=== PATIENT | male | born 1935 | race Caucasian/White ===

== ENCOUNTER 2018-08-25 10:16 | Emergency (ER) | payer MEDICARE, OTHER ==
--- NOTE | 2018-08-25 10:41 | ED Physician Documentation ---
PD HPI DYSPNEA - Stated complaint Stated Complaint: RAPID HR - Chief complaint Chief Complaint: Cardiac - History obtained from History obtained from: Patient - History of Present Illness Timing - onset: How many hours ago (2-3), Today Timing - onset during: Sleep (awoke feeling some general weakness and chest palpitations at times. Took BP and heart rate and his BP was slightly low at about 110-120 systolic and heart rate was 145. Usual heart rate is 60s. He says he felt okay yesterday. He takes his BP/HR daily and it was normal yesterday, and he felt okay when went to bed.) Timing - duration: Hours Timing - details: Abrupt onset, Still present, Waxing and waning (not feeling the palpitations continually but his heart rate by pulse check has stayed at 145.) Inciting event(s): No: Immobilization/travel Improved by: No: Rest Associated symptoms: Palpitations. No: Fever, Cough, Wheezing, Chest pain / discomfort, Bilateral edema Similar symptoms before: Diagnosis (Nhad similar symptoms right after he had valve replacement surgery about 7 years ago. Had atrial fib and was in hospital for several days and did get cardioverted 3 times during that until the atrial fib finally stayed gone. 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 ), Other (LBBB) Respiratory: None - Present Medications Home Medications: Ambulatory Orders Medication Instructions Recorded Confirmed Metoprolol Tartrate [Lopressor] 25 mg PO DAILY #15 tablet 08/25/18 - Allergies Allergies/Adverse Reactions: Allergies Allergy/AdvReac Type Severity Reaction Status Date / Time procaine [From Novocain] Allergy Unknown Verified 08/25/18 10:26 PD ED PE NORMAL - Vitals Vital signs reviewed: Yes (heart rate on monitor is consistent 145.) - General General: Alert and oriented X 3, No acute distress, Well developed/nourished - HEENT HEENT: Pharynx benign - Neck Neck: Supple, no meningeal sign, No adenopathy - Cardiac Cardiac: No: RRR (tachycardia with slight left sternal border murmur. Does not radiate. No chest wall tenderness. ) - Respiratory Respiratory: No respiratory distress, Clear bilaterally - Abdomen Abdomen: Soft, Non tender - Derm Derm: Normal color, Warm and dry, No rash - Extremities Extremities: No tenderness to palpate, Normal ROM s pain, No edema, No calf ten derness / cord - Neuro Neuro: Alert and oriented X 3, No motor deficit, Normal speech Results - Vitals Vitals: Vital Signs - 24 hr 08/25/18 08/25/18 08/25/18 10:23 10:30 10:47 Temperature 36.7 C Heart Rate 145 H 145 H 144 H Respiratory 20 23 18 Rate Blood Pressure 140/101 H 152/106 H 144/102 H O2 Saturation 99 99 97 08/25/18 08/25/18 08/25/18 10:59 11:05 11:15 Temperature Heart Rate 142 H 107 H 97 Respiratory 14 16 18 Rate Blood Pressure 122/89 H 142/92 H 133/72 H O2 Saturation 96 97 95 08/25/18 08/25/18 08/25/18 11:30 11:35 11:40 Temperature Heart Rate 94 93 83 Respiratory 15 15 19 Rate Blood Pressure 130/68 131/70 H 127/78 O2 Saturation 95 96 97 08/25/18 08/25/18 08/25/18 11:45 12:11 12:30 Temperature Heart Rate 81 97 96 Respiratory 17 19 18 Rate Blood Pressure 129/76 125/79 158/122 H O2 Saturation 97 98 97 08/25/18 08/25/18 08/25/18 12:45 12:50 12:55 Temperature Heart Rate 140 H 72 66 Respiratory 18 16 19 Rate Blood Pressure 153/98 H 115/78 117/82 H O2 Saturation 97 97 97 08/25/18 08/25/18 08/25/18 12:59 13:15 13:32 Temperature Heart Rate 70 66 68 Respiratory 22 17 18 Rate Blood Pressure 115/61 105/70 117/67 O2 Saturation 98 97 97 08/25/18 14:00 Temperature Heart Rate 69 Respiratory 25 H Rate Blood Pressure 121/71 O2 Saturation 97 Oxygen O2 Source Room air - EKG (time done) 10:49 Rate: Rate (enter#) (144) Rhythm: Atrial flutter Intervals: LBBB Ischemia: Non specific changes following cardioversion Rate: Rate (enter#) (70) Rhythm: NSR [place]: Normal Intervals: Normal CT, LBBB Ischemia: Normal ST segments. No: ST elevation c/w ischemia, ST depression - Labs Labs: Laboratory Tests 08/25/18 08/25/18 08/25/18 10:28 10:35 10:35 WBC 16.7 H RBC 5.25 Hgb 15.0 Hct 45.8 MCV 87.2 MCH 28.6 MCHC 32.7 RDW 14.3 Plt Count 191 MPV 10.1 Neut # (Auto) 13.0 H Lymph # (Auto) 1.9 [place] # (Auto) 1.6 H Eos # (Auto) 0.0 Baso # (Auto) 0.2 H Absolute Nucleated RBC 0.01 Nucleated RBC % 0.1 Sodium 138 Potassium 4.1 Chloride 106 Carbon Dioxide 20 L Anion Gap 12.0 BUN 25 H Creatinine 1.5 H Estimated GFR (MDRD) 45 L Glucose 120 H Calcium 8.7 Magnesium 2.3 Total Bilirubin 1.3 H AST 20 ALT 16 Alkaline Phosphatase 75 Troponin I B-Natriuretic Peptide 439 H Total Protein 7.3 Albumin 3.9 Globulin 3.4 Albumin/Globulin Ratio 1.1 Lipase 39 08/25/18 10:35 WBC RBC Hgb Hct MCV MCH MCHC RDW Plt Count MPV Neut # (Auto) Lymph # (Auto) [place] # (Auto) Eos # (Auto) Baso # (Auto) Absolute Nucleated RBC Nucleated RBC % Sodium Potassium Chloride Carbon Dioxide Anion Gap BUN Creatinine Estimated GFR (MDRD) Glucose Calcium Magnesium Total Bilirubin AST ALT Alkaline Phosphatase Troponin I < 0.04 B-Natriuretic Peptide Total Protein Albumin Globulin Albumin/Globulin Ratio Lipase Procedures - Cardioversion 1 Indication: Tachyarrhythmia Risks, benefits, alternatives explained to: Pt Prep: IV, O2, 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 Discussed with him and shared decision to cardiovert. ), considered differential (He appears stable, with good BP. Has history of LBBB, so appears likely SVT or atrial flutter (2:1). Could not tell well, so gave Adenosine with slowing pause showing flutter waves. ), d/w patient, d/w spa consultant (Cardiology at . Suggested NOAC and possible betablocker. Patient prefers not to be on NOAC and feels he is not usually in atrial fib. He will check HR regularly and start metoprolol if irregular. ) Departure - Departure Disposition: 01 Home, Self Care Clinical Impression: Atrial flutter with rapid ventricular response Condition: Stable Record reviewed to determine appropriate education?: Yes Instructions: ED Paroxysmal Atrial Flutter Follow-Up: NAS PETE MD [Physician No Access] - Prescriptions: Metoprolol Tartrate [Lopressor] 25 mg PO DAILY #15 tablet Comments: Stay well-hydrated. Continue your aspirin daily. Check your heart rate to 3 times daily for the next several days until follow-up with Dr. Pete. Call for an appointment with Dr. Pete's office. If you were to feel irregular heartbeat or seem to have the fibrillation at times, then start the metoprolol daily. If you have the heart rate go rapidly similar to the had today, then return to the ER for treatment again. Continue your daily aspirin. I understand you prefer not to be on anticoagulants at this point until you discuss with Dr. Pete. That is not unreasonable if this is an infrequent event. The health science specialist will presumably place you on a heart monitor to check for more episodes over time. Discharge Date/Time: 08/25/18 14:16
[2018-08-25] MEDS ORDERED: ADENOSINE 6 MG/2 ML VIAL IVP STA (10:42)
[2018-08-25 10:49] LABS: BASOPHILS # (AUTO) 0.2 10^3/uL (0.0-0.1); BASOPHILS % (AUTO) 0.9 %; EOSINOPHILS % (AUTO) 0.3 %; LYMPHOCYTES # (AUTO) 1.9 10^3/uL (1.5-3.5); LYMPHOCYTES % (AUTO) 11.3 %; MEAN CORPUSCULAR HEMOGLOBIN 28.6 pg (27.0-31.0); MEAN CORPUSCULAR HGB CONC 32.7 g/dL (32.0-36.0); MEAN CORPUSCULAR VOLUME 87.2 fL (80.0-94.0); MEAN PLATELET VOLUME 10.1 fL (7.4-11.4); MONOCYTES # (AUTO) 1.6 10^3/uL (0.0-1.0); MONOCYTES % (AUTO) 9.5 %; PLT - PLATELET COUNT 191 10^3/uL (130-450); RED BLOOD COUNT 5.25 10^6/uL (4.70-6.10); RED CELL DISTRIBUTION WIDTH 14.3 % (12.0-15.0); WHITE BLOOD COUNT 16.7 x10^3/uL (4.8-10.8)
[2018-08-25] MEDS: SODIUM CHLORIDE 0.9% 1,000 ML IV ONE ×2 (10:50→12:39)
[2018-08-25] MEDS ORDERED: ADENOSINE 6 MG/2 ML VIAL IVP ONE (10:53)
[2018-08-25] MEDS ORDERED: METOPROLOL 5 MG/5 ML VIAL IVP STA ×3 (10:54→12:30)
[2018-08-25 11:05] LABS: ALBUMIN 3.9 g/dL (3.2-5.5); ALBUMIN/GLOBULIN RATIO 1.1 (1.0-2.2); BILIRUBIN,TOTAL 1.3 mg/dL (0.2-1.0); CALCIUM 8.7 mg/dL (8.5-10.3); CREATININE 1.5 mg/dL (0.6-1.2); MAGNESIUM 2.3 mg/dL (1.7-2.8); TOTAL PROTEIN 7.3 g/dL (6.7-8.2)
[2018-08-25] MEDS ORDERED: PROPOFOL 200 MG/20 ML VIAL IVP STA (12:30)
[2018-08-25 14:01] VITALS: BP 121/71
== END 2018-08-25 14:16 | disposition home or self-care (01) ==
LOC: ED 10:16
DX: I48.91 Unspecified atrial fibrillation (principal); Z86.79 Personal history of other diseases of the circulatory system; Z95.3 Presence of xenogenic heart valve
CPT/HCPCS: 36415; 80053; 83690; 83735; 83880; 84484; 85025; 92960; 93005; 94770; 96361; 96374; 96375; 96376; 99284; 99285; J0153

== ENCOUNTER 2018-10-19 13:17 | Outpatient (CLI) | payer MEDICARE, OTHER ==
[2018-10-19 13:54] LABS: CALCIUM 8.7 mg/dL (8.5-10.3); CREATININE 1.3 mg/dL (0.6-1.2)
== END 2018-10-19 13:18 | disposition home or self-care (01) ==
LOC: LAB 13:17
PROVIDERS: ATTEND Physician Assistant
DX: I10 Essential (primary) hypertension (principal); I35.0 Nonrheumatic aortic (valve) stenosis
CPT/HCPCS: 36415; 80048

== ENCOUNTER 2021-01-11 06:22 | Day surgery (SDC) | payer MEDICARE, OTHER ==
[~2021-01-11 06:22] MED LIST: KETOROLAC 0.45% OPHTH DROPS ONE
[2021-01-11] MEDS ORDERED: CYCLOPENTOLATE 1% OPHTH DROPS 2 ML ONE (06:23)
[2021-01-11] MEDS ORDERED: PROPARACAINE 0.5% OPHTH DROPS 15 ML ONE (06:25)
[2021-01-11] MEDS ORDERED: PHENYLEPHRINE 2.5% OPHTH 2 ML DROPS ONE (06:26)
[2021-01-11] MEDS ORDERED: LACTATED RINGERS 1,000 ML IV ONE ×2 (06:53→07:51)
[2021-01-11] MEDS ORDERED: TRIAMCIN/MOXIFLOX OPHTHALMIC 0.6 ML VIAL IO ONE ×2 (06:59→07:38)
[2021-01-11] MEDS ORDERED: BRIMONIDINE 0.2% OPHTH DROPS 5 ML ONE (07:00)
[2021-01-11] MEDS ORDERED: TIMOLOL 0.5% OPHTH DROPS ONE (07:00)
[2021-01-11] MEDS ORDERED: BSS/LIDOCAINE/EPINEPHRINE 1 ML SYRINGE ONE (07:00)
[2021-01-11] MEDS ORDERED: EPINEPHrine 1 MG/ML AMP ONE (07:00)
[2021-01-11] MEDS ORDERED: VANCOMYCIN OPHTHALMI 8MG/0.8ML 8 MG/0.8 ML SYRINGE IO ONE ×2 (07:01→07:38)
--- NOTE | 2021-01-11 07:13 | ANESTHESIA ---
Pre-Anesthesia VS, & Labs - Diagnosis senile combined cataract - Procedure L extraction cataract with lens implant Vital Signs: Temp Pulse Resp BP Pulse Ox 36.4 C L 105 H 20 180/83 H 100 01/11/21 06:30 01/11/21 06:30 01/11/21 06:30 01/11/21 06:30 01/11/21 06:30 Height: 6 ft 1 in Weight (kg): 93.4 kg Body Mass Index: 27.1 BMI Classification: Overweight - NPO >8 hours - Lab Results Lab results reviewed: Yes Home Medications and Allergies Home Medications: Ambulatory Orders Aspirin [Aspirin EC] 81 mg PO 01/10/21 Lisinopril [Zestril] 20 mg PO 01/10/21 Aspirin [Aspirin EC] 81 mg PO 01/10/21 Lisinopril [Zestril] 20 mg PO 01/10/21 Allergies/Adverse Reactions: Allergies Allergy/AdvReac Type Severity Reaction Status Date / Time procaine [From Novocain] Allergy Unknown Verified 08/25/18 10:26 Anes History & Medical History - Anesthetic History Anesthesia Complications: reports: No previous complications Family history of Anesthesia Complications: Denies Family history of Malignant Hyperthermia: Denies - Medical History Cardiovascular: reports: Atrial fibrillation, Valve disorder, Other Pulmonary: reports: None Smoking Status: Never smoker - Surgical History Cardiothoracic: reports: CABG (triple 2005), Valve replacement Exam General: Alert, Oriented x3, Cooperative Dental: Dentures full Upper Mouth Openin Fingerbreadth Neck Mobility: Normal Mallampati classification: II Respiratory: Lungs clear, Normal breath sounds, No respiratory distress Cardiovascular: Regular rate Neurological: Normal speech Plan Anesthesia Type: MAC Consent for Procedure(s) Verified and Reviewed: Yes Code Status: Attempt Resuscitation ASA classification: 3-Severe systemic disease Is this case an emergency?: No
[2021-01-11] MEDS ORDERED: MIDAZOLAM 2 MG/2 ML VIAL ONE (07:28)
[2021-01-11] MEDS ORDERED: fentaNYL 100 MCG/2 ML VIAL ONE (07:34)
[2021-01-11] MEDS ORDERED: CHONDR SULF/HYALURONATE SYRINGE IO ONE (07:37)
[2021-01-11] MEDS ORDERED: BRIMONIDINE 0.2% OPHTH DROPS 5 ML OPTH ONE (07:37)
[2021-01-11] MEDS ORDERED: EPINEPHrine 1 MG/ML AMP IR ONE (07:37)
[2021-01-11] MEDS ORDERED: TIMOLOL 0.5% OPHTH DROPS OPTH ONE (07:37)
[2021-01-11] MEDS ORDERED: PROPARACAINE 0.5% OPHTH DROPS 15 ML EACHEYE ONE (07:38)
[2021-01-11] MEDS ORDERED: BSS/LIDOCAINE/EPINEPHRINE 1 ML SYRINGE IO ONE (07:38)
--- NOTE | 2021-01-11 08:05 | OPERATIVE REPORT ---
Operative Report - Other Other Information/Narrative: Date of Surgery: 01/11/21 Preop Dx: Visually significant cataract left eye. This was the first cataract surgery. Postop Dx: Same Procedure: Phacoemulsification with posterior chamber intraocular lens implant left eye Surgeon: Dr. 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 Best corrected visual acuity was 20/40 with glare to 20/80 vision in the left eye. Indications for surgery were: - Overall decrease in vision - Difficulty seeing words on a computer screen - Difficulty reading - Difficulty seeing words, closed captions, or game scores on TV - Difficulty driving in low light or at night - Difficulty driving at night because of headlights from other vehicles - Difficulty with glare or bright lights in any situation - Difficulty tracking a golf ball The patient was consented at length concerning the risks and benefits of cataract surgery after which the patient expressed a desire to proceed with surgery. Operative Procedure: The patient was taken into OR#3 and placed under monitored anesthesia care. A surgical time-out was conducted confirming correct patient, correct procedure, and correct surgical site. The patient was given topical anesthesia and then prepped and draped in the usual sterile fashion. The eye was entered at the 6 and 3 oclock positions. Intracameral Shugarcaine was injected into the anterior chamber followed by a dispersive viscoelastic. A continuous-tear curvilinear capsulorhexis was performed. The nucleus was hydrodissected and phacoemulsified. The cortex was evacuated using automated infusion and aspiration. A cohesive viscoelastic was injected into the capsular bag and a 18.5 diopter intraocular lens was inserted into the bag. Infusion and aspiration were used to evacuate the viscoelastic materials from the eye. The wounds were hydrated and the eye inflated to physiologic pressure using balanced salt solution. Approximately 0.25ml of a mixture of triamcinolone and moxifloxacin was injected trans-sclerally into the vitreous in the inferotemporal quadrant using a 30 gauge cannula. An additional 0.55ml of a mixture of triamcinolone, moxifloxacin, and vancomycin was injected subconjunctivally in the superior quadrant for infection and inflammation prophylaxis. Wound integrity was checked with Weck-Licha sponges. The patient was taken from the operating room in good condition and given post-op instructions.
[2021-01-11 08:19] VITALS: BP 111/57
--- NOTE | 2021-01-11 08:43 | ANESTHESIA POST OP EVALUATION ---
Anesthesia Post Eval - Post Anesthesia Eval Vitals: Last Vital Signs Temp 37.0 C 01/11/21 08:19 Pulse 66 01/11/21 08:19 Resp 16 01/11/21 08:19 BP 111/57 L 01/11/21 08:19 Pulse Ox 96 01/11/21 08:19 CV Function Including HR & BP: Stable Pain Control: Satisfactory Nausea & Vomiting: Negative Mental Status: Baseline Respiratory Status: Airway Patent Hydration Status: Satisfactory Anesthesia Complications: None
== END 2021-01-11 06:23 | disposition home or self-care (01) ==
LOC: SDS 06:22
PROVIDERS: ATTEND Ophthalmology
DX: H25.812 Combined forms of age-related cataract, left eye (principal); I48.91 Unspecified atrial fibrillation; Z95.2 Presence of prosthetic heart valve; Z95.1 Presence of aortocoronary bypass graft
CPT/HCPCS: 66984; A9270; J3490; J7120; V2787

== ENCOUNTER 2021-02-22 09:21 | Day surgery (SDC) | payer MEDICARE, OTHER ==
[~2021-02-22 09:21] MED LIST changes: +CYCLOPENTOLATE 1% OPHTH DROPS 2 ML ONE; +PHENYLEPHRINE 2.5% OPHTH 2 ML DROPS ONE
[2021-02-22] MEDS ORDERED: PROPARACAINE 0.5% OPHTH DROPS 15 ML ONE (09:29)
[2021-02-22] MEDS ORDERED: LACTATED RINGERS 1,000 ML IV ONE ×2 (09:45→10:44)
[2021-02-22] MEDS ORDERED: METOCLOPRAMIDE 10 MG/2 ML VIAL IVP PRN (10:03)
[2021-02-22] MEDS ORDERED: NALOXONE 0.4 MG/ML VIAL IVP PRN (10:03)
[2021-02-22] MEDS ORDERED: fentaNYL 100 MCG/2 ML VIAL IVP PRN (10:03)
[2021-02-22] MEDS ORDERED: ATROPINE ABBOJECT 1 MG/10 ML SYRINGE IVP PRN (10:03)
[2021-02-22] MEDS ORDERED: MORPHINE 2 MG/ML CARPUJECT IVP PRN (10:03)
[2021-02-22] MEDS ORDERED: HYDROmorphone 0.5 MG/0.5 ML SYRINGE IVP PRN (10:03)
[2021-02-22] MEDS ORDERED: ePHEDrine 50 MG/ML VIAL IVP PRN (10:03)
[2021-02-22] MEDS ORDERED: ONDANSETRON 4 MG/2 ML VIAL IVP PRN (10:03)
--- NOTE | 2021-02-22 10:03 | ANESTHESIA ---
Pre-Anesthesia VS, & Labs - Diagnosis right eye cataract - Procedure right eye CATIOL Vital Signs: Temp Pulse Resp BP Pulse Ox 36.9 C 107 H 18 141/72 H 100 02/22/21 09:28 02/22/21 09:28 02/22/21 09:28 02/22/21 09:28 02/22/21 09:28 Height: 6 ft 1 in Weight (kg): 90 kg Body Mass Index: 26.2 BMI Classification: Overweight - NPO >8 hours - Lab Results Lab results reviewed: Yes Home Medications and Allergies Home Medications: Ambulatory Orders Ferrous Sulfate 325 mg PO ACHS 02/21/21 Aspirin [Aspirin EC] 81 mg PO DAILY 01/10/21 Lisinopril [Zestril] 20 mg PO DAILY 01/10/21 Ferrous Sulfate 325 mg PO ACHS 02/21/21 Allergies/Adverse Reactions: Allergies Allergy/AdvReac Type Severity Reaction Status Date / Time procaine [From Novocain] Allergy Severe Anaphylaxis Verified 02/22/21 09:42 Anes History & Medical History - Anesthetic History Anesthesia Complications: reports: No previous complications Family history of Anesthesia Complications: Denies Family history of Malignant Hyperthermia: Denies - Medical History Cardiovascular: reports: Atrial fibrillation, Valve disorder, Other Pulmonary: reports: None Smoking Status: Never smoker - Surgical History Eyes Ears Nose Throat (EENT): reports: Cataracts Cardiothoracic: reports: CABG, Valve replacement Exam General: Alert, Oriented x3, Cooperative, No acute distress Dental: Dentures full Upper Mouth Openin Fingerbreadth Neck Mobility: Reduced Mallampati classification: II Respiratory: Lungs clear, Normal breath sounds, No respiratory distress, No accessory muscle use Plan Anesthesia Type: MAC Consent for Procedure(s) Verified and Reviewed: Yes Code Status: Attempt Resuscitation ASA classification: 3-Severe systemic disease Is this case an emergency?: No
[2021-02-22] MEDS ORDERED: MIDAZOLAM 2 MG/2 ML VIAL ONE (10:06)
[2021-02-22] MEDS ORDERED: TRIAMCIN/MOXIFLOX OPHTHALMIC 0.6 ML VIAL IO ONE ×2 (10:30→12:09)
[2021-02-22] MEDS ORDERED: TIMOLOL 0.5% OPHTH DROPS OPTH ONE (10:30)
[2021-02-22] MEDS ORDERED: BRIMONIDINE 0.2% OPHTH DROPS 5 ML OPTH ONE (10:30)
[2021-02-22] MEDS ORDERED: EPINEPHrine 1 MG/ML AMP IR ONE (10:30)
[2021-02-22] MEDS ORDERED: VANCOMYCIN OPHTHALMI 8MG/0.8ML 8 MG/0.8 ML SYRINGE IO ONE ×2 (10:30→12:10)
[2021-02-22] MEDS ORDERED: PROPARACAINE 0.5% OPHTH DROPS 15 ML EACHEYE ONE (10:30)
[2021-02-22] MEDS ORDERED: BSS/LIDOCAINE/EPINEPHRINE 1 ML SYRINGE IO ONE (10:30)
--- NOTE | 2021-02-22 10:54 | OPERATIVE REPORT ---
Operative Report - Other Other Information/Narrative: Date of Surgery: 02/22/21 Preop Dx: Visually significant cataract right eye. Cataract surgery was performed in the left eye on . Postop Dx: Same Procedure: Phacoemulsification with posterior chamber intraocular lens implant right eye Surgeon: Dr. 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 Best corrected visual acuity was 20/30 with glare to 20/800 vision in the right eye. Indications for surgery were: - Difficulty seeing words on a computer screen - Difficulty reading - Difficulty seeing words, closed captions, or game scores on TV - Difficulty driving in low light or at night - Difficulty driving at night because of headlights from other vehicles - Difficulty with glare or bright lights in any situation - Difficulty tracking a golf ball The patient was consented at length concerning the risks and benefits of cataract surgery after which the patient expressed a desire to proceed with surgery. Operative Procedure: The patient was taken into OR#3 and placed under monitored anesthesia care. A surgical time-out was conducted confirming correct patient, correct procedure, and correct surgical site. The patient was given topical anesthesia and then prepped and draped in the usual sterile fashion. The eye was entered at the 6 and 3 oclock positions. Intracameral Shugarcaine was injected into the anterior chamber followed by a dispersive viscoelastic. A continuous-tear curvilinear capsulorhexis was performed. The nucleus was hydrodissected and phacoemulsified. The cortex was evacuated using automated infusion and aspiration. A cohesive viscoelastic was injected into the capsular bag and a 19.0 diopter intraocular lens was inserted into the bag. Infusion and aspiration were used to evacuate the viscoelastic materials from the eye. The wounds were hydrated and the eye inflated to physiologic pressure using balanced salt solution. Approximately 0.25ml of a mixture of triamcinolone and moxifloxacin was injected trans-sclerally into the vitreous in the inferotemporal quadrant using a 30 gauge cannula. An additional 0.55ml of a mixture of triamcinolone, moxifloxacin, and vancomycin was injected subconjunctivally in the superior quadrant for infection and inflammation prophylaxis. Wound integrity was checked with Weck-Licha sponges. The patient was taken from the operating room in good condition and given post-op instructions.
[2021-02-22] MEDS ORDERED: LACTATED RINGERS 1,000 ML IV SCH (11:00)
[2021-02-22 11:15] VITALS: BP 107/55
--- NOTE | 2021-02-22 11:22 | ANESTHESIA POST OP EVALUATION ---
Anesthesia Post Eval - Post Anesthesia Eval Vitals: Last Vital Signs Temp 36.6 C 02/22/21 11:14 Pulse 71 02/22/21 11:14 Resp 15 02/22/21 11:14 BP 107/55 L 02/22/21 11:14 Pulse Ox 94 02/22/21 11:14 CV Function Including HR & BP: Stable Pain Control: Satisfactory Nausea & Vomiting: Negative Mental Status: Baseline Respiratory Status: Airway Patent Hydration Status: Satisfactory Anesthesia Complications: None
[2021-02-22] MEDS ORDERED: BRIMONIDINE 0.2% OPHTH DROPS 5 ML ONE (12:10)
[2021-02-22] MEDS ORDERED: EPINEPHrine 1 MG/ML AMP ONE (12:10)
[2021-02-22] MEDS ORDERED: TIMOLOL 0.5% OPHTH DROPS ONE (12:10)
[2021-02-22] MEDS ORDERED: BSS/LIDOCAINE/EPINEPHRINE 1 ML SYRINGE ONE (12:10)
== END 2021-02-22 09:22 | disposition home or self-care (01) ==
LOC: SDS 09:21
PROVIDERS: ATTEND Ophthalmology
DX: H25.811 Combined forms of age-related cataract, right eye (principal); Z98.42 Cataract extraction status, left eye; I48.91 Unspecified atrial fibrillation
CPT/HCPCS: 66984; A9270; J3490; J7120; V2787